=== PATIENT | female | born 1995 | race Caucasian/White ===

== ENCOUNTER 2018-09-15 08:44 | Day surgery (SDC) | payer MEDICAID ==
[2018-09-14 10:53] LABS: HEMATOCRIT 35.5 % (36.0-47.0); HEMOGLOBIN 11.8 g/dL (12.0-15.5); MEAN CORPUSCULAR HEMOGLOBIN 27.2 pg (27.0-33.4); MEAN CORPUSCULAR HGB CONC 33.2 g/dL (32.0-36.0); MEAN CORPUSCULAR VOLUME 82 fl (80-97); PLATELET COUNT 223 10^3/uL (150-450); RED BLOOD COUNT 4.33 10^6/uL (3.72-5.28); RED CELL DISTRIBUTION WIDTH 16.5 % (11.5-14.0); WHITE BLOOD COUNT 5.8 10^3/uL (4.0-10.5)
[2018-09-14 11:07] LABS: APPEARANCE,URINE SLIGHTLY-CLOUDY; BILIRUBIN,URINE NEGATIVE (NEGATIVE); COLOR,URINE YELLOW; GLUCOSE, URINE NEGATIVE (NEGATIVE); KETONES,URINE NEGATIVE (NEGATIVE); LEUKOCYTE ESTERASE,URINE MODERATE (NEGATIVE); NITRITE,URINE NEGATIVE (NEGATIVE); PROTEIN,URINE NEGATIVE (NEGATIVE); UROBILINOGEN,URINE NEGATIVE mg/dL (<2.0)
[~2018-09-15 08:44] MED LIST: LACTATED RINGERS 1000 ML IV PRN; LIDOCAINE 0.5% INJ-PF (5 MG/ML) 50 ML SDV SUBCUT PRN; SUCCINYLCHOLINE CHLORIDE INJ 200 MG/10 ML VIAL ONE
[2018-09-15] MEDS ORDERED: MORPHINE SULFATE 10 MG/ML INJ ONE (09:55)
[2018-09-15] MEDS ORDERED: ONDANSETRON HCL INJ/PF 4 MG/2 ML SDV ONE (09:55)
[2018-09-15] MEDS ORDERED: PROPOFOL INJ 200 MG/20 ML VIAL IV ONE (09:55)
[2018-09-15] MEDS ORDERED: FENTANYL CITRATE INJ/PF 100 MCG/2 ML AMPUL ONE (09:55)
[2018-09-15] MEDS ORDERED: DEXAMETHASONE SOD PHOSPHATE INJ 4 MG/1 ML VIAL ONE (09:55)
[2018-09-15] MEDS ORDERED: MIDAZOLAM 2 MG/2 ML INJ ONE (09:55)
[2018-09-15] MEDS ORDERED: SCOPOLAMINE HYDROBROMIDE 1.5 MG PATCH.TD72 ONE (10:14)
[2018-09-15] MEDS ORDERED: FAMOTIDINE INJ/PF 20 MG/2 ML SDV IV ONE (10:30)
[2018-09-15] MEDS ORDERED: MIDAZOLAM 2 MG/2 ML INJ IV ONE (10:30)
[2018-09-15] MEDS ORDERED: DIPHENHYDRAMINE HCL 50 MG/ML VIAL IV PRN (10:37)
[2018-09-15] MEDS ORDERED: MEPERIDINE HCL/PF INJ 25 MG/1 ML DISP.SYRIN IV PRN (10:37)
[2018-09-15] MEDS ORDERED: PROMETHAZINE HCL INJ 25 MG/1 ML VIAL IV PRN ×2 (10:37)
[2018-09-15] MEDS ORDERED: MORPHINE SULFATE 10 MG/ML INJ IV PRN (10:37)
[2018-09-15] MEDS ORDERED: FENTANYL CITRATE INJ/PF 100 MCG/2 ML AMPUL IV PRN ×3 (10:37)
[2018-09-15] MEDS ORDERED: IBUPROFEN 800 MG TABLET PO PRN (10:57)
[2018-09-15] MEDS ORDERED: KETOROLAC TROMETHAMINE INJ/PF 30 MG/1 ML SDV IV PRN (10:57)
[2018-09-15] MEDS ORDERED: RINGERS SOLUTION,LACTATED 1,000 ML IV PRN (10:57)
[2018-09-15] MEDS ORDERED: OXYCODONE-ACETAMINOPHEN 5-325 MG TABLET PO PRN ×2 (10:57)
[2018-09-15] MEDS ORDERED: SCOPOLAMINE HYDROBROMIDE 1.5 MG PATCH.TD72 TD ONE (11:00)
--- NOTE | 2018-09-15 11:02 | Operative Report ---
Operative Report DATE OF SURGERY: 09/15/18 PREOPERATIVE DIAGNOSIS: Patient desires a tubal ligation POSTOPERATIVE DIAGNOSIS: Same OPERATION: Laparoscopic bilateral tubal fulguration with bipolar cautery SURGEON: GUILLE ANGULO ANESTHESIA: GA TISSUE REMOVED OR ALTERED: Fallopian tubes COMPLICATIONS: None ESTIMATED BLOOD LOSS: Minimal INTRAOPERATIVE FINDINGS: Uterus tubes and ovaries PROCEDURE: Patient was taken the OR and placed in supine position. General anesthesia was induced. She is placed in a dorsolithotomy position using Branden stirrups. Her perineum vagina were prepared and draped in sterile fashion. She had voided prior to the procedure and did not need catheterization. Also prior to the procedure she requested cautery instead of Filshie clips. Each tube was identified and followed out to its fimbriated end and then cauterized at its mid isthmic portion moving back toward the uterine cornu and 5 successive bites. There were no complications. The gas was allowed to escape. The scope and port were removed at the same time. The fascia at the umbilicus was closed with a 2- 0 Vicryl stitch and skin closed with a 4-0 undyed Vicryl stitch. All instruments were removed from the vagina. She was extubated in the OR and taken recovery room in stable condition.
--- NOTE | 2018-09-15 11:06 | Discharge Summary ---
Discharge Summary (SDC) - Discharge Final Diagnosis: Patient desires bilateral tubal cautery for sterilization Date of Surgery: 09/15/18 Discharge Date: 09/15/18 Condition: Good Prescriptions: Oxycodone HCl/Acetaminophen [Percocet 5-325 mg Tablet] 1 tab PO Q4HP PRN #20 tablet PRN Reason: Ibuprofen [Motrin 800 mg Tablet] 800 mg PO Q8H PRN 10 Days #30 tablet PRN Reason: Discharge Diet: Regular Discharge Activity: Activity As Tolerated Report the Following to Your Physician Immediately: Fever over 101 Degrees
[2018-09-15] MEDS ORDERED: KETOROLAC TROMETHAMINE INJ/PF 30 MG/1 ML SDV ONE (11:38)
[2018-09-15 13:11] VITALS: BP 107/70
== END 2018-09-15 13:12 | disposition home or self-care (01) ==
LOC: OROUT 08:44
PROVIDERS: ATTEND Obstetrics & Gynecology
DX: Z30.2 Encounter for sterilization (principal); Z87.440 Personal history of urinary (tract) infections
CPT/HCPCS: 36415; 85027; 81005; 81025; 00851; 58670; J2250; J1100; J3010; J3490; J1885; J2270; J0330; J2405; J2704; 851